=== PATIENT | male | born 1980 | race Caucasian/White ===

== ENCOUNTER 2023-06-11 08:36 | Inpatient (IN) | payer BC ==
[2023-06-11] MEDS: Sodium Chloride 0.9% 10 ML Syringe FLUSH PRN (09:51)
[2023-06-11] MEDS: Sodium Chloride 0.9% 1,000 ML IV SCH (09:56)
[2023-06-11 09:57] LABS: BASOPHILS ABSOLUTE AUTO 0.1 K/mm3 (0.0-0.2); BASOPHILS PERCENT AUTO 0.4 % (0.0-1.0); EOSINOPHILS PERCENT AUTO 0.1 % (0.0-6.0); HEMATOCRIT 48.3 % (42.0-52.0); HEMOGLOBIN 16.8 gm/dl (14.0-18.0); IMMATURE GRAN ABSOLUTE AUTO 0.04 K/mm3 (0.00-0.05); IMMATURE GRAN PERCENT AUTO 0.3 % (0.0-0.4); LYMPHOCYTES ABSOLUTE AUTO 1.5 K/mm3 (1.0-4.8); LYMPHOCYTES PERCENT AUTO 10.9 % (24.0-44.0); MEAN CORPUSCULAR HEMOGLOBIN 29.6 pg (28.0-32.0); MEAN CORPUSCULAR HGB CONC 34.8 g/dl (32.0-36.0); MEAN CORPUSCULAR VOLUME 85.2 fl (83.0-99.0); MEAN PLATELET VOLUME 9.3 fl (9.4-12.4); MONOCYTES ABSOLUTE AUTO 0.3 K/mm3 (0.0-0.8); MONOCYTES PERCENT AUTO 1.9 % (0.0-8.0); NEUTROPHILS ABSOLUTE AUTO 11.8 K/mm3 (1.8-7.7); NEUTROPHILS PERCENT AUTO 86.4 % (41.0-71.0); PLATELET COUNT,PLT 318 K/mm3 (150-400); RED BLOOD CELL COUNT 5.67 M/mm3 (4.52-5.90); WHITE BLOOD CELL COUNT,WBC 13.59 K/mm3 (3.9-11.3)
[2023-06-11] MEDS ORDERED: Metoclopramide 10 MG/2 ML SDV IVPUSH ONE (10:10)
[2023-06-11] MEDS ORDERED: diphenhydrAMINE 50 MG/ML SDV IVPUSH ONE (10:10)
[2023-06-11 10:28] LABS: ALBUMIN 4.2 g/dl (3.4-5.0); ANION GAP 19.5 (5-15); BILIRUBIN TOTAL 0.8 mg/dL (0.2-1.0); BUN/CREATININE RATIO 17.8 (14-18); CALCIUM 9.9 mg/dL (8.5-10.1); CREATININE 0.9 mg/dL (0.7-1.3); EST CRCL DRUG DOSING (CG) 109.27 mL/min; MAGNESIUM 1.9 mg/dL (1.8-2.4); POTASSIUM,K 3.5 mEq/L (3.5-5.1); PROTEIN TOTAL,TP 8.6 g/dl (6.4-8.2); TSH 1.887 uIU/mL (0.358-3.74)
[2023-06-11] MEDS ORDERED: Acetaminophen 325 MG Tab PO PRN (12:26)
[2023-06-11] MEDS ORDERED: Docusate Sodium 100 MG Cap PO PRN (12:26)
[2023-06-11] MEDS ORDERED: Ondansetron 4 MG/2 ML SDV IV PRN (12:26)
[2023-06-11 12:53] LABS: CHOLESTEROL HDL 63 mg/dL (40-59); CHOLESTEROL LDL DIRECT 234 mg/dL (<100); CHOLESTEROL TOTAL 331 mg/dL (<200); TRIGLYCERIDES 84 mg/dL (<150)
[2023-06-11 13:16] LABS: BARBITURATE SCREEN,URINE NEGATIVE (CUTOFF=200); BENZODIAZEPINES SCREEN,URINE NEGATIVE (CUTOFF=150); BUPRENORPHINE SCREEN,URINE NEGATIVE (CUTOFF=10); METHADONE SCREEN, URINE NEGATIVE (CUT0FF=200); METHAMPHETAMINES SCREEN, URINE NEGATIVE (CUTOFF=500); OXYCODONE SCREEN,URINE NEGATIVE (CUT0FF=100); THC SCREEN,URINE 20 NG/ML NEGATIVE (CUTOFF=50)
[2023-06-11] MEDS: Aspirin 81 MG Tab.Chew PO ONE (13:16)
[2023-06-11] MEDS: Clopidogrel 75 MG Tab PO ONE (13:17)
[2023-06-11 13:18] LABS: AMPHETAMINES SCREEN, URINE NEGATIVE (CUTOFF=500)
[2023-06-11] MEDS: diphenhydrAMINE 50 MG/ML SDV IVPUSH ONE (14:29)
[2023-06-11] MEDS: Metoclopramide 10 MG/2 ML SDV IVPUSH ONE (14:29)
[2023-06-11] MEDS ORDERED: Labetalol 100 MG/20 ML MDV IVPUSH PRN (16:11)
[2023-06-11] MEDS: atorvaSTATin 40 MG Tab PO SCH (21:54)
[2023-06-12 04:54] LABS: BASOPHILS ABSOLUTE AUTO 0.1 K/mm3 (0.0-0.2); BASOPHILS PERCENT AUTO 0.7 % (0.0-1.0); EOSINOPHILS ABSOLUTE AUTO 0.3 K/mm3 (0.0-0.4); EOSINOPHILS PERCENT AUTO 2.8 % (0.0-6.0); HEMOGLOBIN 15.4 gm/dl (14.0-18.0); IMMATURE GRAN ABSOLUTE AUTO 0.03 K/mm3 (0.00-0.05); IMMATURE GRAN PERCENT AUTO 0.3 % (0.0-0.4); LYMPHOCYTES ABSOLUTE AUTO 3.2 K/mm3 (1.0-4.8); LYMPHOCYTES PERCENT AUTO 29.5 % (24.0-44.0); MEAN CORPUSCULAR HEMOGLOBIN 29.2 pg (28.0-32.0); MEAN CORPUSCULAR HGB CONC 33.5 g/dl (32.0-36.0); MEAN CORPUSCULAR VOLUME 87.1 fl (83.0-99.0); MEAN PLATELET VOLUME 9.4 fl (9.4-12.4); MONOCYTES ABSOLUTE AUTO 0.9 K/mm3 (0.0-0.8); NEUTROPHILS ABSOLUTE AUTO 6.4 K/mm3 (1.8-7.7); NEUTROPHILS PERCENT AUTO 58.7 % (41.0-71.0); PLATELET COUNT,PLT 267 K/mm3 (150-400); RED BLOOD CELL COUNT 5.28 M/mm3 (4.52-5.90); WHITE BLOOD CELL COUNT,WBC 10.95 K/mm3 (3.9-11.3)
[2023-06-12 05:28] LABS: ALBUMIN 3.6 g/dl (3.4-5.0); ANION GAP 14.6 (5-15); BILIRUBIN TOTAL 0.6 mg/dL (0.2-1.0); BUN/CREATININE RATIO 15.5 (14-18); CALCIUM 8.8 mg/dL (8.5-10.1); CREATININE 1.1 mg/dL (0.7-1.3); EST CRCL DRUG DOSING (CG) 89.41 mL/min; MAGNESIUM 2.1 mg/dL (1.8-2.4); POTASSIUM,K 3.6 mEq/L (3.5-5.1); PROTEIN TOTAL,TP 7.2 g/dl (6.4-8.2)
[2023-06-12] MEDS: Aspirin 81 MG Tab.Chew PO SCH (08:39)
[2023-06-12] MEDS: Clopidogrel 75 MG Tab PO SCH (08:39)
[2023-06-12 09:37] LABS: HEMOGLOBIN A1C 5.5 %
[2023-06-12] MEDS ORDERED: Heparin Sodium 5,000 Units/ML Vial SUBCUT SCH (12:00)
[2023-06-12] MEDS: Hydrochlorothiazide 12.5 MG Cap PO SCH (12:03)
[2023-06-12] MEDS: Lisinopril 10 MG Tab PO SCH (12:03)
[2023-06-12] MEDS: hydrALAZINE 20 MG/ML SDV IVPUSH ONE (15:07)
[2023-06-12] MEDS: Labetalol 100 MG/20 ML MDV IVPUSH ONE (15:53)
== END 2023-06-12 17:10 | disposition home or self-care (01) | DRG 45 ==
LOC: JD.ED 08:36 → JD.MS 12:24
PROVIDERS: ADMIT Student in an Organized Health Care Education/Training Program; ATTEND Student in an Organized Health Care Education/Training Program
DX: I63.81 Other cerebral infarction due to occlusion or stenosis of small artery (principal); E78.00 Pure hypercholesterolemia, unspecified; D72.829 Elevated white blood cell count, unspecified; H93.12 Tinnitus, left ear; I10 Essential (primary) hypertension; H55.00 Unspecified nystagmus; Z87.81 Personal history of (healed) traumatic fracture; R29.700 NIHSS score 0; G43.909 Migraine, unspecified, not intractable, without status migrainosus
CPT/HCPCS: 36415; 70450; 70450-26; 70551; 70551-26; 72125; 72125-26; 80053; 80061; 80306; 80307; 83036; 83735; 84443; 85025; 93005; 93307; 93880; 93880-26; 96360; 99285; 99285-25; A9270-GY; J0360; J1200; J1921; J2765; J3490; J7030